=== PATIENT | female | born 1950 | race Caucasian/White ===

== ENCOUNTER → 2017-02-17 | Outpatient (REF) | payer MEDICARE ==
[~2017-02-17] MED LIST: ALTA1CAP2 PO; ASPI650T2 OR; ASPI81TA83 OR; CALCIUM PO; FISH; FISHCAP PO; LOPR50TA OR; MULTIVIT PO; PAIN325T OR; SOTA80TA6 PO; VITAMIN D PO; XARE20TA PO
[2017-02-17 13:13] LABS: MEAN CORPUSCULAR HEMOGLOBIN 31.8 pg (27.0-33.0); MEAN CORPUSCULAR HGB CONC 33.3 g/dl (32.0-36.5); MEAN CORPUSCULAR VOLUME 95.4 fl (80.0-96.0); RED CELL DISTRIBUTION WIDTH 13.4 % (11.5-14.5); WHITE BLOOD COUNT 4.8 K/mm3 (4.0-10.0)
[2017-02-17 13:44] LABS: ALBUMIN 3.7 GM/DL (3.2-5.2); ALBUMIN/GLOBULIN RATIO 1.23 (1.00-1.93); ALKALINE PHOSPHATASE 99 U/L (45-117); ALT/SGPT 34 U/L (12-78); ANION GAP 8 MEQ/L (8-16); AST/SGOT 20 U/L (15-37); BILIRUBIN,TOTAL 0.7 MG/DL (0.2-1.0); BLOOD UREA NITROGEN 21 MG/DL (7-18); CALCIUM LEVEL 9.2 MG/DL (8.8-10.2); CARBON DIOXIDE LEVEL 29 MEQ/L (21-32); CHLORIDE LEVEL 104 MEQ/L (98-107); CREATININE FOR GFR 0.81 MG/DL (0.55-1.02); GLOMERULAR FILTRATION RATE > 60.0 (>45); GLUCOSE, FASTING 98 MG/DL (80-110); POTASSIUM SERUM 4.5 MEQ/L (3.5-5.1); SODIUM LEVEL 141 MEQ/L (136-145); TOTAL PROTEIN 6.7 GM/DL (6.4-8.2)
== END ==
LOC: M SFHCPLAZ 10:21
PROVIDERS: ATTEND Internal Medicine
DX: Z00.00 Encounter for general adult medical examination without abnormal findings (principal); Z79.01 Long term (current) use of anticoagulants; I10 Essential (primary) hypertension

== ENCOUNTER → 2018-02-17 | Outpatient (REF) | payer MEDICARE ==
[2018-02-17 13:25] LABS: HEMATOCRIT 38.5 % (36.0-47.0); HEMOGLOBIN 12.9 g/dl (12.0-15.5); MEAN CORPUSCULAR HEMOGLOBIN 31.3 pg (27.0-33.0); MEAN CORPUSCULAR HGB CONC 33.5 g/dl (32.0-36.5); MEAN CORPUSCULAR VOLUME 93.4 fl (80.0-96.0); PLATELET COUNT, AUTOMATED 141 10^3/uL (150-450); RED BLOOD COUNT 4.12 10^6/uL (4.00-5.40); RED CELL DISTRIBUTION WIDTH 13.4 % (11.5-14.5); WHITE BLOOD COUNT 4.8 10^3/uL (4.0-10.0)
[2018-02-17 13:57] LABS: ALBUMIN 3.8 GM/DL (3.2-5.2); ALBUMIN/GLOBULIN RATIO 1.31 (1.00-1.93); ALKALINE PHOSPHATASE 93 U/L (45-117); ALT/SGPT 39 U/L (12-78); ANION GAP 9 MEQ/L (8-16); AST/SGOT 27 U/L (7-37); BLOOD UREA NITROGEN 19 MG/DL (7-18); CARBON DIOXIDE LEVEL 29 MEQ/L (21-32); CHLORIDE LEVEL 104 MEQ/L (98-107); CHOLESTEROL LEVEL 162 MG/DL (<200); CHOLESTEROL RISK RATIO 2.314 (<5); CREATININE FOR GFR 0.84 MG/DL (0.55-1.30); GLOMERULAR FILTRATION RATE > 60.0 (>45); GLUCOSE, FASTING 95 MG/DL (70-100); HDL CHOLESTEROL 70 MG/DL (>40); LDL CHOLESTEROL 78.2 MG/DL (<100); NON-HDL-C 92 MG/DL; POTASSIUM SERUM 4.7 MEQ/L (3.5-5.1); SODIUM LEVEL 142 MEQ/L (136-145); TOTAL PROTEIN 6.7 GM/DL (6.4-8.2); TRIGLYCERIDES LEVEL 69 MG/DL (<150)
== END ==
LOC: M SFHCADAM 08:48
DX: Z79.01 Long term (current) use of anticoagulants (principal); I10 Essential (primary) hypertension
CPT/HCPCS: 83735

== ENCOUNTER → 2019-02-20 | Outpatient (REF) | payer MEDICARE ==
[2019-02-20 13:48] LABS: HEMATOCRIT 38.9 % (36.0-47.0); HEMOGLOBIN 13.1 g/dl (12.0-15.5); MEAN CORPUSCULAR HEMOGLOBIN 31.3 pg (27.0-33.0); MEAN CORPUSCULAR HGB CONC 33.7 g/dl (32.0-36.5); MEAN CORPUSCULAR VOLUME 92.8 fl (80.0-96.0); PLATELET COUNT, AUTOMATED 150 10^3/uL (150-450); RED BLOOD COUNT 4.19 10^6/uL (4.00-5.40); WHITE BLOOD COUNT 5.2 10^3/uL (4.0-10.0)
[2019-02-20 14:28] LABS: ALBUMIN 4.1 GM/DL (3.2-5.2); ALT/SGPT 36 U/L (12-78); BILIRUBIN,TOTAL 0.8 MG/DL (0.2-1.0); BLOOD UREA NITROGEN 22 MG/DL (7-18); CALCIUM LEVEL 9.2 MG/DL (8.8-10.2); CARBON DIOXIDE LEVEL 31 MEQ/L (21-32); CHLORIDE LEVEL 105 MEQ/L (98-107); CHOLESTEROL LEVEL 155 MG/DL (<200); CHOLESTEROL RISK RATIO 2.152 (<5); CREATININE FOR GFR 0.88 MG/DL (0.55-1.30); GLOMERULAR FILTRATION RATE > 60.0 (>39); GLUCOSE, FASTING 96 MG/DL (70-100); HDL CHOLESTEROL 72 MG/DL (>40); LDL CHOLESTEROL 72 MG/DL (<100); MAGNESIUM LEVEL 2.2 MG/DL (1.8-2.4); NON-HDL-C 83 MG/DL; POTASSIUM SERUM 4.3 MEQ/L (3.5-5.1); SODIUM LEVEL 140 MEQ/L (136-145); TOTAL PROTEIN 6.9 GM/DL (6.4-8.2); TRIGLYCERIDES LEVEL 54 MG/DL (<150)
== END ==
LOC: M SFHCADAM 10:50
PROVIDERS: ATTEND Internal Medicine
DX: Z79.01 Long term (current) use of anticoagulants (principal); I10 Essential (primary) hypertension; I48.0 Paroxysmal atrial fibrillation

== ENCOUNTER → 2020-02-28 | Outpatient (REF) | payer MEDICARE ==
[2020-04-01 11:37] LABS: HEMATOCRIT 40.5 % (36.0-47.0); HEMOGLOBIN 13.5 g/dl (12.0-15.5); MEAN CORPUSCULAR HEMOGLOBIN 31.5 pg (27.0-33.0); MEAN CORPUSCULAR HGB CONC 33.3 g/dl (32.0-36.5); MEAN CORPUSCULAR VOLUME 94.4 fl (80.0-96.0); PLATELET COUNT, AUTOMATED 161 10^3/uL (150-450); RED BLOOD COUNT 4.29 10^6/uL (4.00-5.40); WHITE BLOOD COUNT 5.7 10^3/uL (4.0-10.0)
[2020-04-14 10:49] LABS: ALBUMIN 4.1 GM/DL (3.2-5.2); ALT/SGPT 39 U/L (12-78); BILIRUBIN,TOTAL 0.9 MG/DL (0.2-1.0); BLOOD UREA NITROGEN 17 MG/DL (7-18); CALCIUM LEVEL 9.2 MG/DL (8.8-10.2); CARBON DIOXIDE LEVEL 32 MEQ/L (21-32); CHLORIDE LEVEL 105 MEQ/L (98-107); CHOLESTEROL LEVEL 170 MG/DL (<200); CHOLESTEROL RISK RATIO 2.236 (<5); CREATININE FOR GFR 0.91 MG/DL (0.55-1.30); GLOMERULAR FILTRATION RATE > 60.0 (>39); GLUCOSE, FASTING 100 MG/DL (70-100); HDL CHOLESTEROL 76 MG/DL (>40); LDL CHOLESTEROL 83 MG/DL (<100); NON-HDL-C 94 MG/DL; POTASSIUM SERUM 4.6 MEQ/L (3.5-5.1); SODIUM LEVEL 139 MEQ/L (136-145); TOTAL PROTEIN 7.1 GM/DL (6.4-8.2); TRIGLYCERIDES LEVEL 55 MG/DL (<150)
== END ==
LOC: M SFHCADAM 11:04
PROVIDERS: ATTEND Internal Medicine
DX: Z00.00 Encounter for general adult medical examination without abnormal findings (principal); I10 Essential (primary) hypertension; Z79.01 Long term (current) use of anticoagulants; I48.0 Paroxysmal atrial fibrillation; H52.13 Myopia, bilateral

== ENCOUNTER → 2021-02-18 | Outpatient (REF) | payer MEDICARE ==
[~2021-02-18] MED LIST changes: +Vitamin D PO
[2021-02-18 13:55] LABS: BASO % 0.6 % (0.0-1.0); EOS # 0.1 10^3/uL (0.0-0.5); EOS % 2.7 % (0.0-3.0); HEMATOCRIT 39.2 % (36.0-47.0); HEMOGLOBIN 12.6 g/dl (12.0-15.5); LYMPH # 1.5 10^3/uL (1.5-5.0); LYMPH % 29.8 % (24.0-44.0); MEAN CORPUSCULAR HEMOGLOBIN 30.2 pg (27.0-33.0); MEAN CORPUSCULAR HGB CONC 32.1 g/dl (32.0-36.5); MONO # 0.6 10^3/uL (0.0-0.8); MONO % 11.3 % (2.0-8.0); NEUTROPHILS # 2.7 10^3/uL (1.5-8.5); NEUTROPHILS % 55.2 % (36.0-66.0); PLATELET COUNT, AUTOMATED 136 10^3/uL (150-450); RED BLOOD COUNT 4.17 10^6/uL (4.00-5.40); WHITE BLOOD COUNT 4.9 10^3/uL (4.0-10.0)
[2021-02-18 14:29] LABS: ALBUMIN 3.9 GM/DL (3.2-5.2); ALT/SGPT 35 U/L (12-78); BILIRUBIN,TOTAL 0.6 MG/DL (0.2-1.0); BLOOD UREA NITROGEN 20 MG/DL (7-18); CALCIUM LEVEL 9.5 MG/DL (8.8-10.2); CARBON DIOXIDE LEVEL 32 MEQ/L (21-32); CHLORIDE LEVEL 106 MEQ/L (98-107); CHOLESTEROL LEVEL 168 MG/DL (<200); CHOLESTEROL RISK RATIO 2.181 (<5); CREATININE FOR GFR 0.79 MG/DL (0.55-1.30); GLOMERULAR FILTRATION RATE > 60.0 (>39); GLUCOSE, FASTING 103 MG/DL (70-100); HDL CHOLESTEROL 77 MG/DL (>40); LDL CHOLESTEROL 81 MG/DL (<100); MAGNESIUM LEVEL 2.2 MG/DL (1.8-2.4); NON-HDL-C 91 MG/DL; POTASSIUM SERUM 4.7 MEQ/L (3.5-5.1); SODIUM LEVEL 144 MEQ/L (136-145); TOTAL PROTEIN 6.6 GM/DL (6.4-8.2); TRIGLYCERIDES LEVEL 52 MG/DL (<150)
== END ==
LOC: M SFHCADAM 09:03
PROVIDERS: ATTEND Internal Medicine
DX: Z79.01 Long term (current) use of anticoagulants (principal); I10 Essential (primary) hypertension

== ENCOUNTER → 2021-04-22 | Outpatient (CLI) | payer MEDICARE ==
[~2021-04-22] MED LIST changes: -Vitamin D PO
--- NOTE | 2021-04-22 12:40 | REPMRS ---
Patient History The patient states she had a clinical breast exam in April 2020. Patient is postmenopausal. Family history of breast cancer at age 37 in sister. Patient states no breast complaints today. Patient has signed MRS History Sheet. Digital Woman Screen Mammo: April 22, 2021 - Exam #: [id number] Bilateral CC and MLO view(s) were taken. Technologist: Dominique Driscoll, Technologist Prior study comparison: March 19, 2020, bilateral digital mammo screening bilat, performed at [facility]. March 13, 2019, bilateral digital mammo screening bilat, performed at [facility]. March 11, 2018, bilateral digital mammo screening bilat, performed at [facility]. FINDINGS: The breast tissue is heterogeneously dense. This may lower the sensitivity of mammography. The Volpara volumetric breast density category is: C. There is a moderate amount of heterogeneously dense fibroglandular tissue which is fairly symmetric. There is no interval development of dominant mass, architectural distortion, or grouped microcalcification typical of malignancy. There has been no change in the appearance of the mammogram from the prior studies. 3-D tomosynthesis shows no additional findings. Assessment: BI-RADS/ACR category 1 mammogram. Negative Mammogram. Recommendation Routine screening mammogram of both breasts in 1 year (for women over age 40). This patient's [facility] Lifetime Breast Cancer RIsk is estimated at 11.3 %. This mammogram was interpreted with the aid of an FDA-approved computer-aided dectection system. Electronically Signed By: Tirso Mccoy MD 04/22/21 [id number]
== END ==
LOC: M WHC 11:51
PROVIDERS: ATTEND Obstetrics & Gynecology
DX: Z12.31 Encounter for screening mammogram for malignant neoplasm of breast (principal)

== ENCOUNTER 2021-06-11 09:20 | Emergency (ER) | payer MEDICARE ==
[~2021-06-11] VITALS: Ht 165.1 cm; Wt 58.7 kg
--- OUTSIDE RECORDS SUMMARY | 2021-06-11 09:25 | CCD ---
Author Author [facility] Organization [facility] Address Unknown Phone Unavailable Care Team Providers Care Certified Paralegal Name Role Phone Suzanna SANTANA MD Unavailable Unavailable Suzanna SANTANA MD Unavailable Unavailable Suzanna SANTANA MD Unavailable Unavailable Suzanna SANTANA MD Unavailable Unavailable Suzanna SANTANA MD Unavailable Unavailable Suzanna SANTANA MD Unavailable Unavailable Suzanna SANTANA MD Unavailable Unavailable Suzanna SANTANA MD Unavailable Unavailable Suzanna SANTANA MD Unavailable Unavailable Suzanna SANTANA MD Unavailable Unavailable Suzanna SANTANA MD Unavailable Unavailable Suzanna SANTANA MD Unavailable Unavailable Suzanna SANTANA MD Unavailable Unavailable Suzanna SANTANA MD Unavailable Unavailable Suzanna SANTANA MD Unavailable Unavailable Suzanna SANTANA MD Unavailable Unavailable Suzanna SANTANA MD Unavailable Unavailable Suzanna SANTANA MD Unavailable Unavailable Suzanna SANTANA MD Unavailable Unavailable Suzanna SANTANA MD Unavailable Unavailable Suzanna SANTANA MD Unavailable Unavailable Suzanna SANTANA MD Unavailable Unavailable Suzanna SANTANA MD Unavailable Unavailable Suzanna SANTANA MD Unavailable Unavailable Suzanna SANTANA MD Unavailable Unavailable Suzanna SANTANA MD Unavailable Unavailable Suzanna SANTANA MD Unavailable Unavailable Suzanna SANTANA MD Unavailable Unavailable Suzanna SANTANA MD Unavailable Unavailable Suzanna SANTANA MD Unavailable Unavailable Suzanna SANTANA MD Unavailable Unavailable SANTANA, L TAMMY MD Unavailable Unavailable SANTANA, L TAMMY MD Unavailable Unavailable SANTANA, L TAMMY MD Unavailable Unavailable SANTANA, L TAMMY MD Unavailable Unavailable SANTANA, L TAMMY MD Unavailable Unavailable SANTANA, L TAMMY MD Unavailable Unavailable SANTANA, L TAMMY MD Unavailable Unavailable SANTANA, L TAMMY MD Unavailable Unavailable SANTANA, L TAMMY MD Unavailable Unavailable SANTANA, L TAMMY MD Unavailable Unavailable SANTANA, L TAMMY MD Unavailable Unavailable SANTANA, L TAMMY MD Unavailable Unavailable SANTANA, L TAMMY MD Unavailable Unavailable SANTANA, L TAMMY MD Unavailable Unavailable NADINE, A JAYDEN DO Unavailable Unavailable NADINE, A JAYDEN DO Unavailable Unavailable NADINE, A JAYDEN DO Unavailable Unavailable NADINE, A JAYDEN DO Unavailable Unavailable NADINE, A JAYDEN DO Unavailable Unavailable NADINE, A JAYDEN DO Unavailable Unavailable NADINE, A JAYDEN DO Unavailable Unavailable NADINE, A JAYDEN DO Unavailable Unavailable NADINE, A JAYDEN DO Unavailable Unavailable NADINE, A JAYDEN DO Unavailable Unavailable NADINE, A JAYDEN DO Unavailable Unavailable NADINE, A JAYDEN DO Unavailable Unavailable NADINE, A JAYDEN DO Unavailable Unavailable NADINE, A JAYDEN DO Unavailable Unavailable NADINE, A JAYDEN DO Unavailable Unavailable NADINE, A JAYDEN DO Unavailable Unavailable NADINE, A JAYDEN DO Unavailable Unavailable NADINE, A JAYDEN DO Unavailable Unavailable NADINE, A JAYDEN DO Unavailable Unavailable NADINE, A JAYDEN DO Unavailable Unavailable NADINE, A JAYDEN DO Unavailable Unavailable NADINE, A JAYDEN DO Unavailable Unavailable NADINE, A JAYDEN DO Unavailable Unavailable Re-disclosure Warning The records that you are about to access may contain information from federally-assisted alcohol or drug abuse programs. If such information is present, then the following federally mandated warning applies: This information has been disclosed to you from records protected by federal confidentiality rules (42 CFR part 2). The federal rules prohibit you from making any further disclosure of this information unless further disclosure is expressly permitted by the written consent of the person to whom it pertains or as otherwise permitted by 42 CFR part 2. A general authorization for the release of medical or other information is NOT sufficient for this purpose. The Federal rules restrict any use of the information to criminally investigate or prosecute any alcohol or drug abuse patient.The records that you are about to access may contain highly sensitive health information, the redisclosure of which is protected by Article 27-F of the [facility] Public Health law. If you continue you may have access to information: Regarding HIV / AIDS; Provided by facilities licensed or operated by the [facility] Office of Mental Health; or Provided by the [facility] Office for People With Developmental Disabilities. If such information is present, then the following [facility] mandated warning applies: This information has been disclosed to you from confidential records which are protected by state law. State law prohibits you from making any further disclosure of this information without the specific written consent of the person to whom it pertains, or as otherwise permitted by law. Any unauthorized further disclosure in violation of state law may result in a fine or correction sentence or both. A general authorization for the release of medical or other information is NOT sufficient authorization for further disc losure. Family History Family Member Name Family Member Gender Family Member Status Date o f Status Description Data Source(s) Unknown Unknown Problem MEDENT ([facility] [employer]) Unknown Female Problem MEDENT ([facility]) Unknown Female Problem MEDENT ([facility] Unknown Female Problem MEDENT ([facility]) Unknown Unknown Problem [facility], [facility]) Encounters Encounter Providers Location Date Indications Data Source(s ) Office Visit, Est Pt., Level 3 PC [address] [place] [address] 02/24/2021 12:00:00 AM EDT eCW1 ([facility]) Unknown [address] [facility] [id number] 01/27/2021 12:00:00 AM EDT eCW1 ([facility] hospital) Unknown [address] [facility] [address] 07/10/2020 12:00:00 AM EST eCW1 (Critical access hospital) Outpatient<td ID="encounterTypeDescripti onID0">1 Year Follow-Up</td><td>Jayden Kay DO</td><td>Christopher Morrow MD [facility]</td><td>05/03/2020</td><td>2:24PM</td><td>3:11PM</td><td><content ID="encounterDiagnosisID0-0">Corneal Dystrophy Endothelial Fuchs' Bilateral Eyes</content>, <content ID="encounterDiagnosisID0-1">Cataract Senile Cortical</content>, <content ID="encounterDiagnosisID0-2">Cataract Senile Nuclear</content>, <content ID="encounterDiagnosisID0-3">Drusen Left Eye</content>, <content ID="encounterDiagnosisID0-4">Dry Eye Syndrome</content></td> Attender: JAYDEN Ruby MD [facility] 05/03/2020 02:24:00 PM EDT - 05/03/2020 03:11:00 PM EDT Corneal Dystrophy Endothelial Fuchs' Bilateral EyesDry Eye SyndromeDrusen Left EyeCataract Senile NuclearCataract Senile Cortical ANABEL (Christopher Nova MD [facility]) Corneal Dystrophy Endothelial Fuchs' Vini ateral Eyes Dry Eye Syndrome Drusen Left Eye Cataract Senile Nuclear Cataract Senile Cortical Outpatient Attender: TAMMY SANTANA MD [facility] medical investigator 01/2020 09:45:00 AM EDT 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 COVID-19 dose #2 given elsewhere Unspecified 09/27/2020 06:5 5:00 AM EST completed eCW1 (Critical access hospital) COVID-19 VACCINE Moderna 09/27/2020 12:00:00 AM EST completed [facility] Vaccine Series Complete: YESThis Data wa s Submitted to [facility] Via [employer]. COVID-19 dose #1 given elsewhere Unspecified 08/30/2020 06:5 5:00 AM EST completed eCW1 (Critical access hospital) COVID-19 VACCINE Moderna 08/30/2020 12:00:00 AM EST completed [facility]IS Vaccine Series Complete: NOThis Data was Submitted to [facility] Via [employer]. IIV3. This is one of two codes replacing CVX 15, which is being retired. 04/25/2020 06:54:00 AM EDT completed eCW1 ([facility]) INFLUENZA VACCINE TVS 2019- (65 YR UP)/ADJUVANT MF59 C.1/PF 04/25/2020 12:00:00 AM EDT completed [facility] Medications Medication Brand Name Start Date Product Form Dose Route Admi nistrative Instructions Pharmacy Instructions Status Indications Reaction Description Data Source(s) 100 mcg/0.5 mL 05/23/2021 12:00:00 AM EDT suspension 0 INJECT DIRECTED PER STANDING ORDER INJECT DIRECTED PER STANDING ORDER SOLD: 05/23/2021 [facility] 240 mcg/0.7 mL 05/03/2021 12:00:00 AM EDT syringe 0 INJECT DIRECTED INJECT DIRECTED SOLD: 05/03/2021 [facility] 80 mg 04/18/2021 12:00:00 AM EDT tablet 180 TAKE ONE TABLET BY MOUTH TWICE A DAY TAKE ONE TABLET BY MOUTH TWICE A DAY SOLD: 04/19/2021 [facility] 2.5 mg 01/27/2021 12:00:00 AM EDT capsule 90 TAKE ONE CAPSULE BY MOUTH EVERY DAY TAKE ONE CAPSULE BY MOUTH EVERY DAY SOLD: 05/09/2021 [facility] 2.5 mg 01/27/2021 12:00:00 AM EDT capsule 90 TAKE ONE CAPSULE BY MOUTH EVERY DAY TAKE ONE CAPSULE BY MOUTH EVERY DAY SOLD: 01/28/2021 [facility] 20 mg 10/14/2020 12:00:00 AM EDT tablet 90 TAKE ONE TABLET BY MOUTH EVERY DAY TAKE ONE TABLET BY MOUTH EVERY DAY SOLD: 03/27/2021 [facility] 20 mg 10/14/2020 12:00:00 AM EDT tablet 90 TAKE ONE TABLET BY MOUTH EVERY DAY TAKE ONE TABLET BY MOUTH EVERY DAY SOLD: 10/16/2020 [facility] 80 mg 04/03/2020 12:00:00 AM EDT tablet 180 TAKE ONE TABLET BY MOUTH TWICE A DAY TAKE ONE TABLET BY MOUTH TWICE A DAY SOLD: 07/18/2020 [facility] 80 mg 04/03/2020 12:00:00 AM EDT tablet 180 TAKE ONE TABLET BY MOUTH TWICE A DAY TAKE ONE TABLET BY MOUTH TWICE A DAY SOLD: 10/16/2020 [facility] 80 mg 04/03/2020 12:00:00 AM EDT tablet 180 TAKE ONE TABLET BY MOUTH TWICE A DAY TAKE ONE TABLET BY MOUTH TWICE A DAY SOLD: 01/17/2021 [facility] 2.5 mg 02/14/2020 12:00:00 AM EDT capsule 90 TAKE ONE CAPSULE BY MOUTH ONCE DAILY TAKE ONE CAPSULE BY MOUTH ONCE DAILY SOLD: 08/14/2020 [facility] 2.5 mg 02/14/2020 12:00:00 AM EDT capsule 90 TAKE ONE CAPSULE BY MOUTH ONCE DAILY TAKE ONE CAPSULE BY MOUTH ONCE DAILY SOLD: 11/11/2020 [facility] 2.5 mg 02/14/2020 12:00:00 AM EDT capsule 90 TAKE ONE CAPSULE BY MOUTH ONCE DAILY TAKE ONE CAPSULE BY MOUTH ONCE DAILY SOLD: 05/19/2020 [facility] 20 mg 10/23/2019 12:00:00 AM EDT tablet 90 TAKE ONE TABLET BY MOUTH EVERY DAY TAKE ONE TABLET BY MOUTH EVERY DAY SOLD: 04/20/2020 [facility] 20 mg 10/23/2019 12:00:00 AM EDT tablet 90 TAKE ONE TABLET BY MOUTH EVERY DAY TAKE ONE TABLET BY MOUTH EVERY DAY SOLD: 07/20/2020 [facility] Insurance Providers Payer name Policy type / Coverage type Policy ID Covered libertarian ID Covered libertarian's relationship to reyes Policy Reyes Plan Information BCBS [place] [id number] [id number] [place] P[place] 302/307 [id number] SP [id number] BS [id number] Commercial [id number] Self [id number] [facility] MEDICARE BLUE PPO G [id number] Self [id number] [facility] Advantage Commercial [id number] Self V [id number] [facility] Advantage Commercial [id number] Self BS Medicare Blue Ppo/Hmo Commercial [id number] Self [id number] MEDICARE BLUE PPO 306 [id number] SP [id number] BS Medicare Ppo Commercial [id number] Self [place] PPO 302/307 [id number] SP [id number] SELF PAY UNAVAILABLE UNAVAILA BLE [employer] 304/804 [id number] [place] PPO 302/307 [id number] SP [id number] BS Medicare Blue Ppo/Hmo Commercial [id number] Self MEDICARE O [id number] P [id number] A EXCELLUS BCBS S [id number] P [id number] BCBS OF [place] 306/8 P [id number] O [id number] MEDICARE BLUE PPO [id number] SP [id number] [place] Other 0 [id number] Se lf 0 EXCELLUS BCBS B [id number] S [id number] ANSI-Medicare Part B [id number] Medicare Blue [facility] Health Maintenance Organization (HMO) [id number] Self V [id number] ANSI-Medicare Part B [id number] Problems, Conditions, and Diagnoses Code Display Name Description Problem Type Effective Dates Data Source(s) [id number] Fuchs' corneal dystrophy (disorder) [place] eal Dystrophy Endothelial Fuchs' Bilateral Eyes Problem 05/03/2020 12:00:00 AM TOMY LITTLE (Eliza Nova MD [facility]) Surgeries/Procedures Procedure Description Date Indications Data Source(s) Surgical / procedural history 1985, Right W rist 2018 Surgical / procedural history 1985, Right Wrist 2018 05/03/2020 12:00:00 AM TOMY LITTLE (Christopher Nova MD [facility]) Intermediate Eye Exam Established Patient Intermediate Eye Exam Established Patient 05/03/2020 12:00:00 AM EDT ANABEL (Michael Nova MD [facility]) Results ID Date Data Source [id number] 04/24/2020 12:00:00 PM EDT NATALIE (David Woman ASSISTANT INFANT TEACHER) Name Value Range Interpretation Code Description Data Flori rce(s) Supporting Document(s) TP Reflex HPV ASCUS Laboratory test result MEDENT (David Bruce ASSISTANT INFANT TEACHER) TP Reflex HPV ASCUS Laboratory test result MEDENT (David Bruce ASSISTANT INFANT TEACHER) SPECIMEN PART------ A. Cervical, Endocervical, ThinPrep Pap (Blister Packaging Machine Operator) CYTOLOGY HX-------- Other Information:Previous Normal Pap: 04/20/18 Post-menopausal Routine Exam FINAL DIAGNOSIS---- INTERPRETATION: Negative for Intraepithelial Lesion or Malignancy. SPECIMEN ADEQUACY:Satisfactory for evaluation. Endocervical/transformation zone component present. Procedure Social History Code Duration Value Status Description Data Source(s ) Smoking 03/23/2021 09:54:16 PM EDT Never smoked tobacco (findi ng) completed Never smoked tobacco (finding) ANABEL (Christopher Nova MD [facility]) Smoking 02/24/2021 12:00:00 AM EDT Never Smoker completed Never S moker eCW1 ([facility]) Smoking 07/10/2020 12:00:00 AM EST Never Smoker completed Never S moker eCW1 ([facility]) Smoking 07/10/2020 12:00:00 AM EST Never Smoker completed Never S moker eCW1 ([facility]) Smoking 04/24/2020 12:00:00 AM EDT Patient has never smoked co mpleted Patient has never smoked MEDENT (David Bruce ASSISTANT INFANT TEACHER) Vital Signs ID Date Data Source UNK Name Value Range Interpretation Code Description Data Source(s) Body weight 128.0 [lb_av] 128.0 [lb_av] eCW1 ([facility]) Body height 66 [in_i] 66 [in_i] eCW1 ([facility]) Body mass index (BMI) [Ratio] 20.66 kg/m2 20.66 kg/m2 eCW1 ([facility]) Heart rate 74 /min 74 /min eCW1 ([facility]) Respiratory rate 18 /min 18 /min eCW1 ([facility]) Body temperature 98.1 [degF] 98.1 [degF] eCW1 ( [facility]) Systolic blood pressure 122 mm[Hg] 122 mm[Hg] e CW1 ([facility]) Diastolic blood pressure 70 mm[Hg] 70 mm[Hg] eCW1 ([facility]) Body mass index (BMI) [Ratio] 22.1 kg/m2 22.1 k g/m2 MEDENT ([facility] INF[employer] TEACH[employer]) Body surface area Derived from formula 1.64 m2 1.64 m2 MEDENT ([facility] [employer]IST[employer] INFANT TEACHER) Systolic blood pressure 134 mm[Hg] 134 mm[Hg] M EDENT ([facility] INFANT TEACHER) Diastolic blood pressure 78 mm[Hg] 78 mm[Hg] MEDENT ([facility]IST[employer] INFANT TEACHER) Body height 64.5 [in_i] 64.5 [in_i] MEDENT (Trey oksana Woman ASSISTANT INFANT TEACHER) 5'4.50" Body weight 131.00 [lb_av] 131.00 [lb_av] MEDEN T (Hernandez Woman ASSISTANT INFANT TEACHER)
--- OUTSIDE RECORDS SUMMARY | 2021-06-11 09:25 | CCD ---
Author Author Christopher Morrow MD [facility] Organization Christopher Morrow MD [facility] Address [address] [place] [address] Phone Care Team Providers Care Insurance Processor Name Role Phone Eliza GUTIERREZ Nadir Unavailable [phone] Reason for Referral No Reason for Referral Recorded Problems Includes: Active, inactive, and resolved Problems All Visits Onset Date - Time Resolved Date - Time Provider Co ndition Status Corneal Dystrophy Endothelial Fuchs' Bilateral Eyes 05/03/2020 - 12:00AM Nadir Kay DO Active Cataract Senile Cortical 04/27/2019 - 12:00AM Nadir Kay DO Active Drusen Left Eye 04/27/2019 - 12:00AM Nadir Kay DO Active Corneal Dystrophy Endothelial Fuchs' 04/27/2019 - 12:00AM Nadir Kay DO Inactive Cataract Senile Nuclear 04/27/2019 - 12:00AM Nadir lundberg DO Active Dry Eye Syndrome 04/27/2019 - 12:00AM Nadir gleason DO Active Plan of Treatment Future Appointments Date Time Location Provider 1 Year Follow-Up 05/07/2021 1:50PM Christopher Morrow MD [facility] Nadir Kay DO Findings Encounter Date Ordered intervention and counseling on cessation of to bacco use, 3-10 minutes NEW PATIENT WITH REFERRAL with Nadir Kay DO 04/27/2019 Assessments Includes: Assessments for all patient encounters Findings Encounter Date Cortical senile cataract 1 Year Follow-Up with Nadir nagy DO 05/03/2020 Drusen of the left eye 1 Year Follow-Up with Nadir macedo DO 05/03/2020 Dry eye syndrome 1 Year Follow-Up with Nadir Kay DO 05/03/2020 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 1 Year Follow-Up with Nadir Kay DO 05/03/2020 Nuclear senile cataract 1 Year Follow-Up with Nadir pederson DO 05/03/2020 Cortical senile cataract NEW PATIENT WITH REFERRAL with Hussain Kay DO 04/27/2019 Drusen of the left eye NEW PATIENT WITH REFERRAL with Simi Kay DO 04/27/2019 Dry eye syndrome NEW PATIENT WITH REFERRAL with Nadir lundberg DO 04/27/2019 Fuchs' endothelial corneal dystrophy NEW PATIENT WITH REFERRAL with Nadir Kay DO 04/27/2019 Nuclear senile cataract NEW PATIENT WITH REFERRAL with Oscar tyson Eliza DO 04/27/2019 Instructions Instructions not supported for this document typeNo Instructions Recorded Medical Equipment - Implanted Devices Includes: Current and historical DevicesNo Medical Equipment Recorded Medications Includes: Current and historical Medications Current Medications (continue as prescribed) Ramipril 2.5 MG Oral Capsule 04/27/2019 Provider: Diagnosis: Xarelto 20 MG Oral Tablet 04/27/2019 Provider: Diagnosis: Sotalol HCl 80 MG Oral Tablet 04/27/2019 Provider: Diagnosis: 2 a day Centrum Silver Oral Tablet 04/27/2019 Provider: Diagnosis: Calcium 600 MG Oral Tablet 04/27/2019 Provider: Diagnosis: Medications Administered Includes: Administered Medications in patient's chartNo Administered Medications Recorded Vital Signs Includes: Vital Signs from 03/23/2020 through 03/23/2021No Vital Signs Recorded For Specified Dates Results Includes: Results from 03/23/2020 through 03/23/2021No Results Recorded For Specified Dates History of Present Illness History of Present Illness not supported for this document typeNo History of Present Illness Recorded Social History Description Last Updated No tobacco use 05/03/2020 Not using alcohol 05/03/2020 Not using drugs 05/03/2020 Smoking status : Never smoker 05/03/2020 Procedures and Surgical History Includes: Procedures from 03/23/2020 through 03/23/2021 Procedures Code Diagnosis Performing Provider Service Location Service Date Intermediate Eye Exam Established Patient [id number] Drusen (degenerative) of macula, left eye, Endothelial corneal dystrophy, bilateral, Age-related nuclear cataract, bilateral, Dry eye syndrome of bilateral lacrimal glands Nadir Ruby MD [facility] 05/03/2020 Surgical History Last Updated Surgical / procedural history 1985, Right W rist 2018 05/03/2020 Medical History Includes: Medical History in patient's chart Description Last Updated No recent change in medical history 05/03/2020 Currently wearing eyeglasses 05/03/2020 Reported medical history A-Fib 201105/03/2020 Family History Includes: Family History in patient's chart Description Last Updated Maternal history of cataract 05/03/2020 Maternal history of diabetes mellitus 05/03/2020 Maternal history of hypertension 05/03/2020 Paternal history of arthritis 05/03/2020 Paternal history of cataract 05/03/2020 Paternal history of hypertension 05/03/2020 Sororal history of arthritis 05/03/2020 Sororal history of diabetes mellitus 05/03/2020 Sororal history of family history of cancer 05/03/2020 Review of Systems Review of Systems not supported for this document typeNo Review of Systems Recorded Mental Status Mental Status not supported for this document type Description Oriented to time, place, and person Functional Status Functional Status not supported for this document typeNo Functional Status Recorded Physical Exam Physical Exam not supported for this document typeNo Physical Exam Recorded Immunizations Includes: Immunizations in patient's chartNo Immunizations Recorded Allergies Includes: Active, inactive, and resolved AllergiesNo Known Allergies Encounters Includes: Encounters from 03/23/2020 through 03/23/2021 Encounter Provider Location Date Check-In Time Check-Out Time D iagnosis 1 Year Follow-Up Nadir Ruby MD [facility] 04/18 2:24PM 3:11PM Corneal Dystrophy Endothelia l Fuchs' Bilateral Eyes, Cataract Senile Cortical, Cataract Senile Nuclear, Drusen Left Eye, Dry Eye Syndrome Insurance Includes: Active Insurance Policies Plan Name Member ID Group # Subscriber Relationship Effective Da remi 1 - MEDICARE EMILY [id number] Imelda Castellanos Self Advance Directives Includes: Current Advance DirectivesNo Advance Directives Recorded Health Concerns Includes: Active Health ConcernsNo Active Health Concerns Recorded Goals Includes: Active GoalsNo Active Goals Recorded Interventions Includes: Interventions for active GoalsNo Interventions Recorded Evaluations & Outcomes Includes: Evaluations & Outcomes for active GoalsNo Outcomes Recorded
[2021-06-11] MEDS ORDERED: Vitamin D PO (09:30)
--- OUTSIDE RECORDS SUMMARY | 2021-06-11 11:13 | CCD ---
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 Role Phone Suzanna SANTANA MD Unavailable Unavailable Suzanna SANTANA MD Unavailable Unavailable Suzanna SANTANA MD Unavailable Unavailable Suzanna SANTANA MD Unavailable Unavailable Suzanna SANTANA MD Unavailable Unavailable Suzanna SANTANA MD Unavailable Unavailable Suzanna SANTANA MD Unavailable Unavailable SANTANASuzanna MD Unavailable Unavailable Suzanna SANTANA MD Unavailable Unavailable SANTANASuzanna MD Unavailable Unavailable Suzanna SANTANA MD Unavailable Unavailable Suzanna SANTANA MD Unavailable Unavailable SANTANASuzanna MD Unavailable Unavailable Suzanna SANTANA MD Unavailable Unavailable SANTANASuzanna MD Unavailable Unavailable Suzanna SANTANA MD Unavailable Unavailable SANTANASuzanna MD Unavailable Unavailable Suzanna SANTANA MD Unavailable Unavailable Suzanna SANTANA MD Unavailable Unavailable SANTANASuzanna MD Unavailable Unavailable Suzanna SANTANA MD Unavailable Unavailable SANTANASuzanna MD Unavailable Unavailable SANTANASuzanna MD Unavailable Unavailable Suzanna SANTANA MD Unavailable Unavailable Suzanna SANTANA MD Unavailable Unavailable Suzanna SANTANA MD Unavailable Unavailable Suzanna SANTANA MD Unavailable Unavailable MAX, Suzanna MUNOZ MD Unavailable Unavailable MAX, L TAMMY ORTEZ Unavailable Unavailable Suzanna SANTANA MD Unavailable Unavailable [...] is protected by Article 27-F of the [place] State Public Health law. If you continue you may have access to information: Regarding HIV / AIDS; Provided by facilities licensed or operated by the [facility] Office of Mental Health; or Provided by the [facility] Office for People With Developmental Disabilities. If such information is present, then the following [facility] mandated warning applies: This information has [...] law may result in a fine or nursing home sentence or both. A general authorization for the release of medical or other information is NOT sufficient authorization for further disc losure. Family History Family Member Name Family Member Gender Family Member Status Date o f Status Description Data Source(s) Unknown Unknown Problem MEDENT ([facility]) Unknown Female Problem MEDENT ([facility]) Unknown Female Problem [facility] ([facility] Unknown Female Problem MEDENT ([facility]) Unknown Unknown Problem [facility]) Encounters Encounter Providers Location Date Indications Data Source(s ) Office Visit, Est Pt., Level 3 PC [address] [place] [address] 02/24/2021 12:00:00 AM EDT eCW1 ([facility]) Unknown [address] [facility] [id number] 01/27/2021 12:00:00 AM EDT eCW1 ([facility]) Unknown [address] [facility] [id number] 07/10/2020 12:00:00 AM EST eCW1 ([facility]) <td ID="encounterTypeDescriptionID0">1 Y ear Follow-Up</td><td>Jayden Kay DO</td><td>Christopher Morrow MD [facility]</td><td>05/03/2020</td><td>2:24PM</td><td>3:11PM</td><td><content ID="encounterDiagnosisID0-0">Corneal Dystrophy Endothelial Fuchs' Bilateral Eyes</content>, <content ID="encounterDiagnosisID0-1">Cataract Senile Cortical</content>, <content ID="encounterDiagnosisID0-2">Cataract Senile Nuclear</content>, <content ID="encounterDiagnosisID0-3">Drusen Left Eye</content>, <content ID="encounterDiagnosisID0-4">Dry Eye Syndrome</content></td>Outpatient Attender: JAYDEN Saunders MD [facility] 05/03/2020 02:24:00 PM EDT - 05/03/2020 03:11:00 PM ED T Corneal Dystrophy Endothelial Fuchs' Bilateral EyesDry Eye SyndromeDrusen Left EyeCataract Senile NuclearCataract Senile Cortical ANABEL (Christopher Nova MD 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 COVID-19 dose #2 given elsewhere Unspecified 09/27/2020 06:5 5:00 AM EST completed eCW1 ([facility]) COVID-19 VACCINE Moderna 09/27/2020 12:00:00 AM EST completed [facility] Vaccine Series Complete: YESThis Data wa s Submitted to [facility] Via [employer]. COVID-19 dose #1 given elsewhere Unspecified 08/30/2020 06:5 5:00 AM EST completed eCW1 ([facility]) COVID-19 VACCINE Moderna 08/30/2020 12:00:00 AM EST completed [facility] Vaccine Series Complete: NOThis Data was Submitted to [facility] Via [employer]. IIV3. This is one of two codes replacing CVX 15, which is being retired. 04/25/2020 06:54:00 AM EDT completed eCW1 ([facility]) INFLUENZA VACCINE TVS 2019- (65 YR UP)/ADJUVANT [...] Policy Reyes Plan Information BCBS [place] 304/804 [id number] [id number] [place]BS [place] PPO 302/307 [id number] SP [id number] BS [employer] Commercial [id number] Self [id number] [facility] MEDICARE BLUE PPO G [id number] Self [id number] [facility] Advantage Commercial [id number] Self V [id number] [facility] Advantage Commercial [id number] Self BS Medicare Blue Ppo/Hmo Commercial [id number] Self [id number] MEDICARE BLUE PPO 306 [id number] SP [id number] BS Medicare Ppo Commercial [id number] Self BCBS [place] PPO 302/307 [id number] SP [id number] SELF PAY UNAVAILABLE UNAVAILA BLE BCBS [place] 304/804 [id number] HU [id number] [place] PPO 302/307 [id number] SP [id number] BS Medicare Blue Ppo/Hmo Commercial [id number] Self MEDICARE O [id number] A EXCELLUS BCBS S [id number] P [id number] BCBS OF [place] 306/8 P [id number] O [id number] MEDICARE BLUE PPO 306 [id number] SP [id number] BCBS of [place] Other 0 [id number] Se lf 0 EXCELLUS BCBS B [id number] S [id number] ANSI-Medicare Part B [id number] Medicare Blue [facility] Maintenance Organization (HMO) [id number] Self V [id number] ANSI-Medicare Part B [id number] Problems, Conditions, and Diagnoses Code Display Name Description Problem Type Effective Dates Data Source(s) 599912705 Fuchs' corneal dystrophy (disorder) [place] eal Dystrophy Endothelial Fuchs' Bilateral Eyes Problem 05/03/2020 12:00:00 AM TOMY LITTLE (Eliza Nova MD [facility]) Surgeries/Procedures Procedure Description Date Indications Data Source(s) Surgical / procedural history 1985, Right W rist 2018 Surgical / procedural history 1985, Right Wrist 2018 05/03/2020 12:00:00 AM TOMY LITTLE (Christopher Nova MD [facility]) Intermediate Eye Exam Established Patient Intermediate Eye Exam Established Patient 05/03/2020 12:00:00 AM EDT ANABEL (Michael Nova MD [facility]) Results ID Date Data Source [id number] 04/24/2020 12:00:00 PM EDT MEDSCOTTY (David Woman [facility]) Name Value Range Interpretation Code Description Data Flori rce(s) Supporting Document(s) TP Reflex HPV ASCUS Laboratory test result MEDENT (David Bruce [facility]) TP Reflex HPV ASCUS Laboratory test result MEDENT (David Bruce [facility]) SPECIMEN PART------ A. Cervical, Endocervical, ThinPrep Pap (Rn Documentation) CYTOLOGY HX-------- Other Information:Previous Normal Pap: 04/20/18 Post-menopausal Routine Exam FINAL DIAGNOSIS---- INTERPRETATION: Negative for Intraepithelial Lesion or Malignancy. SPECIMEN ADEQUACY:Satisfactory for evaluation. Endocervical/transformation zone component present. Procedure Social History Code Duration Value Status Description Data Source(s ) Smoking 03/23/2021 09:54:16 PM EDT Never smoked tobacco (findi ng) completed Never smoked tobacco (finding) ANABEL (Christopher Nova MD [facility]) Smoking 02/24/2021 12:00:00 AM EDT Never Smoker completed Never S moker eCW1 ([facility]) Smoking 07/10/2020 12:00:00 AM EST Never Smoker completed Never S moker eCW1 ([facility]) Smoking 07/10/2020 12:00:00 AM EST Never Smoker completed Never S moker eCW1 ([facility]) Smoking 04/24/2020 12:00:00 AM EDT Patient has never smoked co mpleted Patient has never smoked MEDENT ([facility]) Vital Signs ID Date Data Source UNK Name Value Range Interpretation Code Description Data Source(s) Body weight 128.0 [lb_av] 128.0 [lb_av] eCW1 ([facility]) Body height 66 [in_i] 66 [in_i] eCW1 ([facility]) Body mass index (BMI) [Ratio] 20.66 kg/m2 20.66 kg/m2 eCW1 ([facility]) Heart rate 74 /min 74 /min eCW1 ([facility]) Respiratory rate 18 /min 18 /min eCW1 ([facility]) Body temperature 98.1 [degF] 98.1 [degF] eCW1 ( [facility]) Systolic blood pressure 122 mm[Hg] 122 mm[Hg] e CW1 ([facility]) Diastolic blood pressure 70 mm[Hg] 70 mm[Hg] eCW1 ([facility]) Body mass index (BMI) [Ratio] 22.1 kg/m2 22.1 k g/m2 MEDENT ([facility]) Body surface area Derived from formula 1.64 m2 1.64 m2 MEDENT ([facility]) Diastolic blood pressure 78 mm[Hg] 78 mm[Hg] MEDENT ([facility]) Body height 64.5 [in_i] 64.5 [in_i] MEDENT (Trey gandhi Woman [facility]) 5'4.50" Body weight 131.00 [lb_av] 131.00 [lb_av] MEDEN T ([facility]) Systolic blood pressure 134 mm[Hg] 134 mm[Hg] M EDENT ([facility])
[2021-06-11 11:17] LABS: HEMATOCRIT 38.1 % (36.0-47.0); HEMOGLOBIN 12.5 g/dl (12.0-15.5); MEAN CORPUSCULAR HEMOGLOBIN 30.9 pg (27.0-33.0); MEAN CORPUSCULAR HGB CONC 32.8 g/dl (32.0-36.5); MEAN CORPUSCULAR VOLUME 94.1 fl (80.0-96.0); PLATELET COUNT, AUTOMATED 118 10^3/uL (150-450); RED BLOOD COUNT 4.05 10^6/uL (4.00-5.40); WHITE BLOOD COUNT 4.6 10^3/uL (4.0-10.0)
[2021-06-11 11:36] LABS: BLOOD UREA NITROGEN 20 MG/DL (7-18); CALCIUM LEVEL 9.2 MG/DL (8.8-10.2); CARBON DIOXIDE LEVEL 33 MEQ/L (21-32); CHLORIDE LEVEL 106 MEQ/L (98-107); CREATININE FOR GFR 0.82 MG/DL (0.55-1.30); GLOMERULAR FILTRATION RATE > 60.0 (>39); GLUCOSE, FASTING 107 MG/DL (70-100); POTASSIUM SERUM 4.5 MEQ/L (3.5-5.1); SODIUM LEVEL 141 MEQ/L (136-145)
[2021-06-11 11:40] LABS: CK-MB VALUE MASS 1.5 NG/ML (<3.6); MB/CK RELATIVE INDEX 2.88 (< OR =4)
[2021-06-11 13:24] VITALS: BP 172/82
--- NOTE | 2021-06-11 17:01 | ECGEPIP ---
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
== END 2021-06-11 13:26 | disposition home or self-care (01) ==
LOC: M ED 09:20
DX: R42 Dizziness and giddiness (principal); I48.91 Unspecified atrial fibrillation; I10 Essential (primary) hypertension; Z79.01 Long term (current) use of anticoagulants; Z79.899 Other long term (current) drug therapy

== ENCOUNTER → 2022-03-03 | Outpatient (REF) | payer MEDICARE ==
[~2022-03-03] MED LIST changes: +Vitamin D PO
[2022-03-03 13:14] LABS: BASO % 0.5 % (0.0-1.0); EOS # 0.1 10^3/uL (0.0-0.5); EOS % 2.5 % (0.0-3.0); HEMOGLOBIN 12.5 g/dl (12.0-15.5); LYMPH # 1.3 10^3/uL (1.5-5.0); LYMPH % 31.7 % (24.0-44.0); MEAN CORPUSCULAR HEMOGLOBIN 30.7 pg (27.0-33.0); MEAN CORPUSCULAR HGB CONC 32.1 g/dl (32.0-36.5); MEAN CORPUSCULAR VOLUME 95.8 fl (80.0-96.0); MONO # 0.5 10^3/uL (0.0-0.8); MONO % 11.8 % (2.0-8.0); NEUTROPHILS # 2.2 10^3/uL (1.5-8.5); NEUTROPHILS % 53.3 % (36.0-66.0); PLATELET COUNT, AUTOMATED 136 10^3/uL (150-450); RED BLOOD COUNT 4.07 10^6/uL (4.00-5.40); WHITE BLOOD COUNT 4.1 10^3/uL (4.0-10.0)
[2022-03-03 14:07] LABS: ALBUMIN 3.8 GM/DL (3.2-5.2); ALT/SGPT 38 U/L (12-78); BILIRUBIN,TOTAL 0.8 MG/DL (0.2-1.0); BLOOD UREA NITROGEN 20 MG/DL (7-18); CALCIUM LEVEL 9.5 MG/DL (8.8-10.2); CARBON DIOXIDE LEVEL 29 MEQ/L (21-32); CHLORIDE LEVEL 105 MEQ/L (98-107); CHOLESTEROL LEVEL 154 MG/DL (<200); CHOLESTEROL RISK RATIO 1.974 (<5); CREATININE FOR GFR 0.83 MG/DL (0.55-1.30); GLOMERULAR FILTRATION RATE > 60.0 (>39); GLUCOSE, FASTING 103 MG/DL (70-100); HDL CHOLESTEROL 78 MG/DL (>40); LDL CHOLESTEROL 66 MG/DL (<100); NON-HDL-C 76 MG/DL; POTASSIUM SERUM 4.5 MEQ/L (3.5-5.1); SODIUM LEVEL 137 MEQ/L (136-145); TOTAL PROTEIN 6.2 GM/DL (6.4-8.2); TRIGLYCERIDES LEVEL 50 MG/DL (<150)
== END ==
LOC: M SFHCADAM 08:28
PROVIDERS: ATTEND Internal Medicine
DX: I48.0 Paroxysmal atrial fibrillation (principal); I10 Essential (primary) hypertension; Z79.01 Long term (current) use of anticoagulants

== ENCOUNTER → 2022-03-24 | Outpatient (REF) | payer MEDICARE ==
[2022-03-24 14:09] LABS: ALBUMIN 4.1 GM/DL (3.2-5.2); CALCIUM LEVEL 9.8 MG/DL (8.8-10.2); CREATININE FOR GFR 1.13 MG/DL (0.55-1.30); GLOMERULAR FILTRATION RATE 50.2 (>39); MAGNESIUM LEVEL 2.2 MG/DL (1.8-2.4); PHOSPHORUS LEVEL 3.9 MG/DL (2.5-4.9); POTASSIUM SERUM 4.3 MEQ/L (3.5-5.1)
== END ==
LOC: M SFHCADAM 11:09
PROVIDERS: ATTEND Family Medicine
DX: I10 Essential (primary) hypertension (principal)

== ENCOUNTER → 2022-04-23 | Outpatient (CLI) | payer MEDICARE | LOC: M WHC 09:32 | PROVIDERS: ATTEND Family Medicine | DX: Z12.31 Encounter for screening mammogram for malignant neoplasm of breast (principal); M85.89 Other specified disorders of bone density and structure, multiple sites ==

== ENCOUNTER → 2022-05-12 | Outpatient (REF) | payer MEDICARE ==
[2022-05-12 13:13] LABS: HEMATOCRIT 38.6 % (36.0-47.0)
[2022-05-12 14:22] LABS: ALBUMIN 3.8 GM/DL (3.2-5.2); BLOOD UREA NITROGEN 23 MG/DL (7-18); CALCIUM LEVEL 9.3 MG/DL (8.8-10.2); CARBON DIOXIDE LEVEL 29 MEQ/L (21-32); CHLORIDE LEVEL 105 MEQ/L (98-107); CREATININE FOR GFR 0.99 MG/DL (0.55-1.30); GLOMERULAR FILTRATION RATE 58.5 (>39); GLUCOSE, FASTING 108 MG/DL (70-100); NT-PRO BNP 1329 PG/ML (<125); PHOSPHORUS LEVEL 4.1 MG/DL (2.5-4.9); POTASSIUM SERUM 5.2 MEQ/L (3.5-5.1); SODIUM LEVEL 138 MEQ/L (136-145)
[2022-05-12 18:13] LABS: PTH INTACT 68.1 PG/ML (18.5-88.0); TOTAL 25(OH) VITAMIN D 50.2 NG/ML (30.0-100.0); VITAMIN B12 LEVEL 497 PG/ML (247-911)
[2022-05-13 17:07] LABS: FREE KAPPA LIGHT CHAINS SERUM 17.2 mg/L (3.3-19.4); KAPPA/LAMBDA RATIO SERUM 1.43 (0.26-1.65)
== END ==
LOC: M SFHCPLAZ 09:02
PROVIDERS: ATTEND Family Medicine
DX: D75.89 Other specified diseases of blood and blood-forming organs (principal); E55.9 Vitamin D deficiency, unspecified; I10 Essential (primary) hypertension; Z79.899 Other long term (current) drug therapy

== ENCOUNTER → 2022-09-25 | Outpatient (REF) | payer MEDICARE | LOC: M PLALAB 12:47 | PROVIDERS: ATTEND Nurse Practitioner Family | DX: Z12.4 Encounter for screening for malignant neoplasm of cervix (principal); N95.2 Postmenopausal atrophic vaginitis | CPT/HCPCS: 87624; G0123 ==

== ENCOUNTER → 2022-11-11 | Outpatient (CLI) | payer MEDICARE ==
[2022-11-11 15:23] LABS: BASO % 0.6 % (0.0-1.0); EOS # 0.1 10^3/uL (0.0-0.5); HEMATOCRIT 39.6 % (36.0-47.0); HEMOGLOBIN 13.1 g/dl (12.0-15.5); LYMPH # 1.5 10^3/uL (1.5-5.0); LYMPH % 29.4 % (24.0-44.0); MEAN CORPUSCULAR HEMOGLOBIN 31.6 pg (27.0-33.0); MEAN CORPUSCULAR HGB CONC 33.1 g/dl (32.0-36.5); MEAN CORPUSCULAR VOLUME 95.7 fl (80.0-96.0); MONO # 0.6 10^3/uL (0.0-0.8); MONO % 12.1 % (2.0-8.0); NEUTROPHILS # 2.9 10^3/uL (1.5-8.5); NEUTROPHILS % 55.7 % (36.0-66.0); PLATELET COUNT, AUTOMATED 157 10^3/uL (150-450); RED BLOOD COUNT 4.14 10^6/uL (4.00-5.40); WHITE BLOOD COUNT 5.1 10^3/uL (4.0-10.0)
[2022-11-11 15:28] LABS: ALKALINE PHOSPHATASE 88 U/L (46-116); ALT/SGPT 27 U/L (7.0-40); AST/SGOT 25 U/L (<34); BILIRUBIN,TOTAL 0.8 MG/DL (0.3-1.2); BLOOD UREA NITROGEN 26 MG/DL (9-23); CALCIUM LEVEL 9.1 MG/DL (8.3-10.6); CARBON DIOXIDE LEVEL 31 MMOL/L (20-31); CHLORIDE LEVEL 103 MMOL/L (98-107); CREATININE FOR GFR 0.93 MG/DL (0.55-1.30); GLOMERULAR FILTRATION RATE > 60.0 (>39); GLUCOSE, FASTING 104 MG/DL (74-106); POTASSIUM SERUM 4.8 MMOL/L (3.5-5.1); SODIUM LEVEL 138 MMOL/L (136-145); TOTAL PROTEIN 6.9 G/DL (5.7-8.2)
[2022-11-11 15:30] LABS: FERRITIN 58.7 NG/ML (7.3-270.7)
== END ==
LOC: M LABDRWAD 10:36
PROVIDERS: ATTEND Family Medicine
DX: I10 Essential (primary) hypertension (principal); D75.89 Other specified diseases of blood and blood-forming organs

== ENCOUNTER → 2023-04-22 | Outpatient (REF) | payer MEDICARE ==
[2023-04-22 14:33] LABS: BASO % 0.7 % (0.0-1.0); EOS # 0.1 10^3/uL (0.0-0.5); HEMATOCRIT 37.4 % (36.0-47.0); HEMOGLOBIN 12.2 g/dl (12.0-15.5); LYMPH # 1.4 10^3/uL (1.5-5.0); LYMPH % 33.3 % (24.0-44.0); MEAN CORPUSCULAR HEMOGLOBIN 31.3 pg (27.0-33.0); MEAN CORPUSCULAR HGB CONC 32.6 g/dl (32.0-36.5); MEAN CORPUSCULAR VOLUME 95.9 fl (80.0-96.0); MONO # 0.5 10^3/uL (0.0-0.8); MONO % 11.9 % (2.0-8.0); NEUTROPHILS # 2.2 10^3/uL (1.5-8.5); NEUTROPHILS % 51.1 % (36.0-66.0); PLATELET COUNT, AUTOMATED 187 10^3/uL (150-450); WHITE BLOOD COUNT 4.3 10^3/uL (4.0-10.0)
[2023-04-22 14:39] LABS: ALBUMIN 3.6 G/DL (3.2-5.2); BILIRUBIN,TOTAL 0.8 MG/DL (0.3-1.2); CALCIUM LEVEL 9.3 MG/DL (8.3-10.6); CHOLESTEROL RISK RATIO 2.44 (<5); CREATININE FOR GFR 0.97 MG/DL (0.55-1.30); GLOMERULAR FILTRATION RATE 59.8 (>39); HDL CHOLESTEROL 64.7 MG/DL (>40); LDL CHOLESTEROL 83.5 MG/DL (<100); NON-HDL-C 93.3 MG/DL; POTASSIUM SERUM 4.9 MMOL/L (3.5-5.1); TOTAL PROTEIN 6.3 G/DL (5.7-8.2)
[2023-04-22 14:40] LABS: PTH INTACT 53.2 PG/ML (18.5-88.0)
[2023-04-22 14:41] LABS: FERRITIN 69.5 NG/ML (7.3-270.7); TOTAL 25(OH) VITAMIN D 62.6 NG/ML (20.0-100.0)
== END ==
LOC: M SFHCADAM 08:22
PROVIDERS: ATTEND Family Medicine
DX: I50.32 Chronic diastolic (congestive) heart failure (principal); D75.89 Other specified diseases of blood and blood-forming organs; E55.9 Vitamin D deficiency, unspecified; Z79.899 Other long term (current) drug therapy

== ENCOUNTER → 2023-04-28 | Outpatient (CLI) | payer MEDICARE | LOC: M WHC 11:45 | PROVIDERS: ATTEND Nurse Practitioner Family | DX: Z12.31 Encounter for screening mammogram for malignant neoplasm of breast (principal) ==

== ENCOUNTER → 2023-09-22 | Outpatient (REF) | payer MEDICARE ==
[2023-09-22 14:38] LABS: BASO % 0.6 % (0.0-1.0); EOS # 0.1 10^3/uL (0.0-0.5); EOS % 1.7 % (0.0-3.0); LYMPH # 1.3 10^3/uL (1.5-5.0); LYMPH % 28.4 % (24.0-44.0); MEAN CORPUSCULAR HEMOGLOBIN 31.5 pg (27.0-33.0); MEAN CORPUSCULAR HGB CONC 33.3 g/dl (32.0-36.5); MEAN CORPUSCULAR VOLUME 94.4 fl (80.0-96.0); MONO # 0.5 10^3/uL (0.0-0.8); MONO % 10.2 % (2.0-8.0); NEUTROPHILS # 2.8 10^3/uL (1.5-8.5); NEUTROPHILS % 58.9 % (36.0-66.0); PLATELET COUNT, AUTOMATED 139 10^3/uL (150-450); RED BLOOD COUNT 4.13 10^6/uL (4.00-5.40); WHITE BLOOD COUNT 4.7 10^3/uL (4.0-10.0)
[2023-09-22 15:05] LABS: HEMOGLOBIN A1c 5.8 % (4.0-6.0)
[2023-09-22 15:14] LABS: ALBUMIN 4.2 G/DL (3.2-5.2); ALKALINE PHOSPHATASE 92 U/L (46-116); ALT/SGPT 40 U/L (7.0-40); AST/SGOT 30 U/L (<34); BLOOD UREA NITROGEN 29 MG/DL (9-23); CARBON DIOXIDE LEVEL 31 MMOL/L (20-31); CHLORIDE LEVEL 103 MMOL/L (98-107); CREATININE FOR GFR 0.95 MG/DL (0.55-1.30); FERRITIN 54.3 NG/ML (7.3-270.7); GLOMERULAR FILTRATION RATE > 60.0 (>39); GLUCOSE, FASTING 101 MG/DL (74-106); MAGNESIUM LEVEL 1.9 MG/DL (1.8-2.4); POTASSIUM SERUM 4.2 MMOL/L (3.5-5.1); SODIUM LEVEL 138 MMOL/L (136-145); TOTAL PROTEIN 6.8 G/DL (5.7-8.2)
[2023-09-22 15:15] LABS: VITAMIN B12 LEVEL 531 PG/ML (211-911)
== END ==
LOC: M SFHCPLAZ 10:28
PROVIDERS: ATTEND Family Medicine
DX: I10 Essential (primary) hypertension (principal); I48.0 Paroxysmal atrial fibrillation; I50.32 Chronic diastolic (congestive) heart failure; Z79.899 Other long term (current) drug therapy

== ENCOUNTER → 2024-03-28 | Outpatient (CLI) | payer MEDICARE ==
[2024-03-28 13:45] LABS: BASO % 0.7 % (0.0-1.0); EOS # 0.1 10^3/uL (0.0-0.5); HEMATOCRIT 37.8 % (36.0-47.0); HEMOGLOBIN 12.3 g/dl (12.0-15.5); LYMPH # 1.4 10^3/uL (1.5-5.0); LYMPH % 33.6 % (24.0-44.0); MEAN CORPUSCULAR HEMOGLOBIN 31.1 pg (27.0-33.0); MEAN CORPUSCULAR HGB CONC 32.5 g/dl (32.0-36.5); MEAN CORPUSCULAR VOLUME 95.5 fl (80.0-96.0); MONO # 0.4 10^3/uL (0.0-0.8); NEUTROPHILS # 2.2 10^3/uL (1.5-8.5); NEUTROPHILS % 52.2 % (36.0-66.0); PLATELET COUNT, AUTOMATED 129 10^3/uL (150-450); RED BLOOD COUNT 3.96 10^6/uL (4.00-5.40); WHITE BLOOD COUNT 4.3 10^3/uL (4.0-10.0)
[2024-03-28 13:48] LABS: ALKALINE PHOSPHATASE 86 U/L (46-116); ALT/SGPT 29 U/L (7.0-40); AST/SGOT 17 U/L (<34); BILIRUBIN,TOTAL 0.7 MG/DL (0.3-1.2); BLOOD UREA NITROGEN 31 MG/DL (9-23); CALCIUM LEVEL 9.3 MG/DL (8.3-10.6); CARBON DIOXIDE LEVEL 31 MMOL/L (20-31); CHLORIDE LEVEL 103 MMOL/L (98-107); CREATININE FOR GFR 0.92 MG/DL (0.55-1.30); GLOMERULAR FILTRATION RATE > 60.0 (>39); GLUCOSE, FASTING 103 MG/DL (74-106); POTASSIUM SERUM 4.2 MMOL/L (3.5-5.1); SODIUM LEVEL 139 MMOL/L (136-145); TOTAL PROTEIN 6.7 G/DL (5.7-8.2)
[2024-03-28 13:51] LABS: TOTAL 25(OH) VITAMIN D 59.4 NG/ML (20.0-100.0)
[2024-03-28 14:15] LABS: HEMOGLOBIN A1c 5.6 % (4.0-6.0)
[2024-03-28 14:41] LABS: CREATININE, URINE 8.5 MG/DL; MALB URINE SIEMENS < 3.0 MG/L; MAU/CREAT RATIO 35.2 MCG/MG (0.0-30.0)
[2024-03-31 01:47] LABS: LDH 149 U/L (120-250)
[2024-03-31 12:07] LABS: (LD) FRACTION 1 36 % (18-32); (LD) FRACTION 2 27 % (29-42); (LD) FRACTION 3 20 % (14-30); (LD) FRACTION 4 7 % (6-13); (LD) FRACTION 5 9 % (5-18)
[2024-04-05 09:49] LABS: JAK2 MUTATIONS FOR PATH SENDOU See Pathology Report
== END ==
LOC: M LAB 09:07
PROVIDERS: ATTEND Family Medicine
DX: E55.9 Vitamin D deficiency, unspecified (principal); I50.32 Chronic diastolic (congestive) heart failure; D75.89 Other specified diseases of blood and blood-forming organs; R73.01 Impaired fasting glucose; D72.819 Decreased white blood cell count, unspecified

== ENCOUNTER 2024-04-05 14:44 | Outpatient (RCR) | payer MEDICARE | END 2024-04-17 | LOC: M PT 14:44 | PROVIDERS: ATTEND Orthopaedic Surgery | DX: M25.562 Pain in left knee (principal) ==

== ENCOUNTER → 2024-04-13 | Outpatient (CLI) | payer MEDICARE ==
[2024-04-13 13:54] LABS: BASO % 0.6 % (0.0-1.0); EOS # 0.1 10^3/uL (0.0-0.5); EOS % 2.3 % (0.0-3.0); HEMATOCRIT 37.4 % (36.0-47.0); HEMOGLOBIN 12.4 g/dl (12.0-15.5); LYMPH # 1.5 10^3/uL (1.5-5.0); LYMPH % 29.4 % (24.0-44.0); MEAN CORPUSCULAR HEMOGLOBIN 31.4 pg (27.0-33.0); MEAN CORPUSCULAR HGB CONC 33.2 g/dl (32.0-36.5); MEAN CORPUSCULAR VOLUME 94.7 fl (80.0-96.0); MONO # 0.6 10^3/uL (0.0-0.8); MONO % 12.5 % (2.0-8.0); NEUTROPHILS # 2.8 10^3/uL (1.5-8.5); PLATELET COUNT, AUTOMATED 136 10^3/uL (150-450); RED BLOOD COUNT 3.95 10^6/uL (4.00-5.40); WHITE BLOOD COUNT 5.1 10^3/uL (4.0-10.0)
[2024-04-13 13:56] LABS: PERCENT SATURATION 34.2 % (13.2-45.0)
[2024-04-13 13:58] LABS: FERRITIN 45.4 NG/ML (7.3-270.7)
== END ==
LOC: M PLALAB 10:38
PROVIDERS: ATTEND Orthopaedic Surgery
DX: M25.562 Pain in left knee (principal); M17.12 Unilateral primary osteoarthritis, left knee

== ENCOUNTER → 2024-05-05 | Outpatient (CLI) | payer MEDICARE | LOC: M WHC 11:24 | PROVIDERS: ATTEND Family Medicine | DX: Z13.820 Encounter for screening for osteoporosis (principal); M85.851 Other specified disorders of bone density and structure, right thigh; M85.852 Other specified disorders of bone density and structure, left thigh ==

== ENCOUNTER → 2024-05-05 | Outpatient (CLI) | payer MEDICARE | LOC: M WHC 11:23 | PROVIDERS: ATTEND Nurse Practitioner Family | DX: Z12.31 Encounter for screening mammogram for malignant neoplasm of breast (principal) ==

== ENCOUNTER → 2024-06-09 | Outpatient (CLI) | payer MEDICARE ==
[2024-06-09 15:45] LABS: BASO % 0.5 % (0.0-1.0); EOS # 0.4 10^3/uL (0.0-0.5); EOS % 4.8 % (0.0-3.0); HEMATOCRIT 32.7 % (36.0-47.0); HEMOGLOBIN 10.4 g/dl (12.0-15.5); LYMPH # 1.3 10^3/uL (1.5-5.0); LYMPH % 16.5 % (24.0-44.0); MEAN CORPUSCULAR HEMOGLOBIN 31.7 pg (27.0-33.0); MEAN CORPUSCULAR HGB CONC 31.8 g/dl (32.0-36.5); MEAN CORPUSCULAR VOLUME 99.7 fl (80.0-96.0); MONO # 0.8 10^3/uL (0.0-0.8); MONO % 10.2 % (2.0-8.0); NEUTROPHILS # 5.3 10^3/uL (1.5-8.5); NEUTROPHILS % 67.4 % (36.0-66.0); PLATELET COUNT, AUTOMATED 200 10^3/uL (150-450); RED BLOOD COUNT 3.28 10^6/uL (4.00-5.40); WHITE BLOOD COUNT 7.9 10^3/uL (4.0-10.0)
[2024-06-09 15:49] LABS: ALBUMIN 3.7 G/DL (3.2-5.2); ALKALINE PHOSPHATASE 104 U/L (35-104); ALT/SGPT 26 U/L (7.0-40); AST/SGOT 16 U/L (<34); BILIRUBIN,TOTAL 0.4 MG/DL (0.3-1.2); BLOOD UREA NITROGEN 20 MG/DL (9-23); CALCIUM LEVEL 10.2 MG/DL (8.3-10.6); CARBON DIOXIDE LEVEL 32 MMOL/L (20-31); CHLORIDE LEVEL 103 MMOL/L (98-107); CREATININE FOR GFR 0.72 MG/DL (0.55-1.30); GLOMERULAR FILTRATION RATE > 60.0 (>39); GLUCOSE, FASTING 103 MG/DL (74-106); MAGNESIUM LEVEL 2.1 MG/DL (1.8-2.4); POTASSIUM SERUM 4.8 MMOL/L (3.5-5.1); SODIUM LEVEL 142 MMOL/L (136-145); TOTAL PROTEIN 7.3 G/DL (5.7-8.2)
[2024-06-09 15:51] LABS: FERRITIN 169.2 NG/ML (7.3-270.7)
== END ==
LOC: M PLALAB 12:03
DX: I10 Essential (primary) hypertension (principal); D50.8 Other iron deficiency anemias; I63.412 Cerebral infarction due to embolism of left middle cerebral artery; I50.32 Chronic diastolic (congestive) heart failure

== ENCOUNTER → 2024-06-12 | Outpatient (CLI) | payer MEDICARE | LOC: M PLAIMG 12:54 | PROVIDERS: ATTEND Nurse Practitioner Family | DX: I61.9 Nontraumatic intracerebral hemorrhage, unspecified (principal) ==

== ENCOUNTER 2024-06-13 07:54 | Outpatient (RCR) | payer MEDICARE | END 2024-06-17 | LOC: M PT 07:54 | PROVIDERS: ATTEND Nurse Practitioner | DX: M17.12 Unilateral primary osteoarthritis, left knee (principal); M25.562 Pain in left knee; I69.320 Aphasia following cerebral infarction ==

== ENCOUNTER 2024-07-17 12:01 | Outpatient (RCR) | payer MEDICARE | END 2024-07-18 | LOC: M PT 12:01 | PROVIDERS: ATTEND Nurse Practitioner | DX: Z47.89 Encounter for other orthopedic aftercare (principal); Z96.652 Presence of left artificial knee joint; I63.411 Cerebral infarction due to embolism of right middle cerebral artery; R47.01 Aphasia ==

== ENCOUNTER 2024-08-17 13:21 | Outpatient (RCR) | payer MEDICARE | END 2024-08-18 | LOC: M ST 13:21 | PROVIDERS: ATTEND Nurse Practitioner | DX: M17.12 Unilateral primary osteoarthritis, left knee (principal); M25.562 Pain in left knee; I69.320 Aphasia following cerebral infarction ==

== ENCOUNTER 2024-09-14 13:42 | Outpatient (RCR) | payer MEDICARE | END 2024-09-15 | LOC: M ST 13:42 | PROVIDERS: ATTEND Nurse Practitioner | DX: Z96.652 Presence of left artificial knee joint (principal); M17.12 Unilateral primary osteoarthritis, left knee; I69.320 Aphasia following cerebral infarction; M25.562 Pain in left knee ==

== ENCOUNTER 2024-10-05 13:55 | Outpatient (RCR) | payer MEDICARE ==
[~2024-10-05 13:55] MED LIST changes: -D31000TA PO; -METO1TAB87 PO; -MULTTAB61 PO; -RAMI5CAP60 PO
[2024-10-06] MEDS ORDERED: METO1TAB87 PO (12:15)
[2024-10-06] MEDS ORDERED: RAMI5CAP60 PO (12:15)
[2024-10-06] MEDS ORDERED: D31000TA PO (12:15)
[2024-10-06] MEDS ORDERED: MULTTAB61 PO (12:15)
== END 2024-10-16 ==
LOC: M ST 13:55
PROVIDERS: ATTEND Nurse Practitioner
DX: I63.411 Cerebral infarction due to embolism of right middle cerebral artery (principal); R47.01 Aphasia; M25.562 Pain in left knee; M17.12 Unilateral primary osteoarthritis, left knee

== ENCOUNTER → 2024-10-05 | Outpatient (REF) | payer MEDICARE ==
[~2024-10-05] MED LIST changes: +D31000TA PO; +METO1TAB87 PO; +MULTTAB61 PO; +RAMI5CAP60 PO
[2024-10-05 13:49] LABS: BASO % 0.9 % (0.0-1.0); EOS # 0.1 10^3/uL (0.0-0.5); EOS % 3.8 % (0.0-3.0); LYMPH # 0.8 10^3/uL (1.5-5.0); LYMPH % 23.7 % (24.0-44.0); MEAN CORPUSCULAR HEMOGLOBIN 30.1 pg (27.0-33.0); MEAN CORPUSCULAR HGB CONC 32.4 g/dl (32.0-36.5); MEAN CORPUSCULAR VOLUME 92.7 fl (80.0-96.0); MONO # 0.5 10^3/uL (0.0-0.8); MONO % 14.6 % (2.0-8.0); NEUTROPHILS # 1.9 10^3/uL (1.5-8.5); NEUTROPHILS % 56.7 % (36.0-66.0); PLATELET COUNT, AUTOMATED 133 10^3/uL (150-450); RED BLOOD COUNT 3.99 10^6/uL (4.00-5.40); WHITE BLOOD COUNT 3.4 10^3/uL (4.0-10.0)
[2024-10-05 13:55] LABS: ALBUMIN 3.8 G/DL (3.2-5.2); ALKALINE PHOSPHATASE 122 U/L (35-104); ALT/SGPT 50 U/L (7.0-40); AST/SGOT 32 U/L (<34); BILIRUBIN,TOTAL 0.9 MG/DL (0.3-1.2); BLOOD UREA NITROGEN 27 MG/DL (9-23); CALCIUM LEVEL 9.5 MG/DL (8.3-10.6); CARBON DIOXIDE LEVEL 30 MMOL/L (20-31); CHLORIDE LEVEL 105 MMOL/L (98-107); GLOMERULAR FILTRATION RATE > 60.0 (>39); GLUCOSE, FASTING 99 MG/DL (74-106); MAGNESIUM LEVEL 1.9 MG/DL (1.8-2.4); POTASSIUM SERUM 4.8 MMOL/L (3.5-5.1); SODIUM LEVEL 142 MMOL/L (136-145); TOTAL PROTEIN 6.8 G/DL (5.7-8.2)
[2024-10-05 14:12] LABS: CREATININE,RANDOM URINE 95.7 MG/DL
[2024-10-05 14:51] LABS: HEMOGLOBIN A1c 5.8 % (4.0-6.0)
[2024-10-06 10:28] LABS: PROTEIN, TOTAL SO 6.7 g/dL (6.1-8.1)
[2024-10-06 11:53] LABS: INSULIN LEVEL 3.4 uIU/mL (<=18.4)
[2024-10-09 10:03] LABS: LDH 163 U/L (120-250)
[2024-10-10 09:08] LABS: ALBUMIN SO 4.2 g/dL (3.8-4.8); ALPHA 1 GLOBULINS SO 0.2 g/dL (0.2-0.3); ALPHA 2 GLOBULINS SO 0.5 g/dL (0.5-0.9); BETA 2 GLOBULIN SO 0.3 g/dL (0.2-0.5); BETA GLOBULIN SO 0.5 g/dL (0.4-0.6); GAMMA GLOBULINS SO 0.9 g/dL (0.8-1.7)
[2024-10-10 23:57] LABS: (LD) FRACTION 1 29 % (18-32); (LD) FRACTION 2 32 % (29-42); (LD) FRACTION 3 22 % (14-30); (LD) FRACTION 4 8 % (6-13); (LD) FRACTION 5 8 % (5-18)
== END ==
LOC: M SFHCPLAZ 08:50
PROVIDERS: ATTEND Family Medicine
DX: D69.6 Thrombocytopenia, unspecified (principal); D75.89 Other specified diseases of blood and blood-forming organs; I50.32 Chronic diastolic (congestive) heart failure; R73.01 Impaired fasting glucose; D72.819 Decreased white blood cell count, unspecified

== ENCOUNTER 2024-10-06 08:46 | Inpatient (IN) | payer OTHER, MEDICARE ==
[~2024-10-06] VITALS: Ht 165.1 cm; Wt 55.8 kg
[2024-10-06] MEDS: ACETAMINOPHEN *IV* 1,000 MG in IV 1 EA IV ONE (09:55)
[2024-10-06] MEDS ORDERED: ISOVUE-370 76% 100ML VIAL As Ordered ONE (09:59)
[2024-10-06] MEDS ORDERED: D31000TA PO (12:15)
[2024-10-06] MEDS ORDERED: METO1TAB87 PO (12:15)
[2024-10-06] MEDS ORDERED: MULTTAB61 PO (12:15)
[2024-10-06] MEDS ORDERED: RAMI5CAP60 PO (12:15)
[2024-10-06] MEDS ORDERED: HOME MED LIST COMPLETE! XX SCH (12:20)
[2024-10-06 12:39] LABS: HEMATOCRIT 35.9 % (36.0-47.0); HEMOGLOBIN 11.7 g/dl (12.0-15.5); MEAN CORPUSCULAR HEMOGLOBIN 29.8 pg (27.0-33.0); MEAN CORPUSCULAR HGB CONC 32.6 g/dl (32.0-36.5); MEAN CORPUSCULAR VOLUME 91.3 fl (80.0-96.0); PLATELET COUNT, AUTOMATED 119 10^3/uL (150-450); RED BLOOD COUNT 3.93 10^6/uL (4.00-5.40); WHITE BLOOD COUNT 9.9 10^3/uL (4.0-10.0)
[2024-10-06] MEDS ORDERED: ONDANSETRON 4MG 2ML VIAL IV PRN (12:45)
[2024-10-06] MEDS ORDERED: ACETAMINOPHEN 325 MG TAB PO PRN (12:45)
[2024-10-06] MEDS ORDERED: MORPHINE 2 MG/ML 1ML VIAL IV PRN ×4 (12:45→13:00)
[2024-10-06] MEDS ORDERED: IPRATROPIUM 0.5MG/ALBUTEROL 2.5MG INH SOL UD 3ML (DUONEB) NEB PRN (12:45)
[2024-10-06] MEDS ORDERED: MORPHINE 4 MG/ML 1ML VIAL IV PRN (13:00)
[2024-10-06 13:07] LABS: ALBUMIN 3.7 G/DL (3.2-5.2); ALKALINE PHOSPHATASE 116 U/L (35-104); ALT/SGPT 58 U/L (7.0-40); AST/SGOT 51 U/L (<34); BILIRUBIN,TOTAL 0.9 MG/DL (0.3-1.2); BLOOD UREA NITROGEN 21 MG/DL (9-23); CALCIUM LEVEL 8.9 MG/DL (8.3-10.6); CARBON DIOXIDE LEVEL 29 MMOL/L (20-31); CHLORIDE LEVEL 103 MMOL/L (98-107); GLOMERULAR FILTRATION RATE > 60.0 (>39); GLUCOSE, FASTING 112 MG/DL (74-106); POTASSIUM SERUM 4.1 MMOL/L (3.5-5.1); SODIUM LEVEL 142 MMOL/L (136-145); TOTAL PROTEIN 6.7 G/DL (5.7-8.2)
[2024-10-06] MEDS: NS (Normal Saline) 0.9% 1,000 ML IV SCH (13:22)
[2024-10-06] MEDS: IPRATROPIUM 0.5MG/ALBUTEROL 2.5MG INH SOL UD 3ML (DUONEB) NEB SCH (13:44)
[2024-10-06] MEDS: KETOROLAC 30 MG/ML 1ML VIAL IV PRN (15:31)
[2024-10-06 16:07] VITALS: BP 147/67; TEMP 98.9; O2SAT 96
[2024-10-06 19:30] VITALS: BP 145/65; TEMP 98.2; O2SAT 96
[2024-10-06] MEDS: METOPROLOL TART 25 MG TABLET PO SCH (20:09)
[2024-10-06 23:10] VITALS: BP 136/62; TEMP 97.6; O2SAT 98
[2024-10-07 04:20] VITALS: BP 151/67; TEMP 97.4; O2SAT 95
[2024-10-07 05:47] LABS: HEMATOCRIT 29.7 % (36.0-47.0); HEMOGLOBIN 9.9 g/dl (12.0-15.5); MEAN CORPUSCULAR HEMOGLOBIN 30.1 pg (27.0-33.0); MEAN CORPUSCULAR HGB CONC 33.3 g/dl (32.0-36.5); MEAN CORPUSCULAR VOLUME 90.3 fl (80.0-96.0); PLATELET COUNT, AUTOMATED 108 10^3/uL (150-450); RED BLOOD COUNT 3.29 10^6/uL (4.00-5.40); WHITE BLOOD COUNT 5.4 10^3/uL (4.0-10.0)
[2024-10-07 06:10] LABS: BLOOD UREA NITROGEN 21 MG/DL (9-23); CALCIUM LEVEL 8.9 MG/DL (8.3-10.6); CARBON DIOXIDE LEVEL 28 MMOL/L (20-31); CHLORIDE LEVEL 108 MMOL/L (98-107); CREATININE FOR GFR 0.72 MG/DL (0.55-1.30); GLOMERULAR FILTRATION RATE > 60.0 (>39); GLUCOSE, FASTING 112 MG/DL (74-106); POTASSIUM SERUM 4.1 MMOL/L (3.5-5.1); SODIUM LEVEL 141 MMOL/L (136-145)
[2024-10-07 08:13] VITALS: BP 133/62; TEMP 98.4; O2SAT 97
[2024-10-07] MEDS: MULTIVITAMINS/MINERALS THERAP 1 TAB PO SCH (09:55)
[2024-10-07 09:56] VITALS: BP 133/62
[2024-10-07] MEDS: ramipriL 5 MG CAP PO SCH (09:56)
[2024-10-07] MEDS: PANTOPRAZOLE 40MG VIAL IV SCH (09:56)
[2024-10-07 12:01] VITALS: BP 152/66; TEMP 97.7; O2SAT 99
[2024-10-07] MEDS ORDERED: RIVAROXABAN 20MG TAB (XARELTO) PO SCH (21:00)
== END 2024-10-07 13:02 | disposition home or self-care (01) | DRG 135 ==
LOC: M ED 08:46 → EDBD 08:46 → M ED INP 12:45 → M PCU 14:55
PROVIDERS: ADMIT Surgery; ATTEND Surgery
DX: S27.321A Contusion of lung, unilateral, initial encounter (principal); S22.41XA Multiple fractures of ribs, right side, initial encounter for closed fracture; I48.91 Unspecified atrial fibrillation; I69.320 Aphasia following cerebral infarction; M19.90 Unspecified osteoarthritis, unspecified site; I10 Essential (primary) hypertension; Z79.899 Other long term (current) drug therapy; V43.52XA Car driver injured in collision with other type car in traffic accident, initial encounter

== ENCOUNTER → 2024-10-13 | Outpatient (CLI) | payer MEDICARE ==
[~2024-10-13] MED LIST changes: +D31000TA PO; +METO1TAB87 PO; +MULTTAB61 PO; +RAMI5CAP60 PO
[2024-10-13 13:58] LABS: BASO % 0.6 % (0.0-1.0); EOS # 0.2 10^3/uL (0.0-0.5); EOS % 3.6 % (0.0-3.0); HEMATOCRIT 31.3 % (36.0-47.0); HEMOGLOBIN 10.1 g/dl (12.0-15.5); LYMPH # 0.9 10^3/uL (1.5-5.0); MEAN CORPUSCULAR HEMOGLOBIN 29.6 pg (27.0-33.0); MEAN CORPUSCULAR HGB CONC 32.3 g/dl (32.0-36.5); MEAN CORPUSCULAR VOLUME 91.8 fl (80.0-96.0); MONO # 0.8 10^3/uL (0.0-0.8); MONO % 15.5 % (2.0-8.0); NEUTROPHILS # 3.4 10^3/uL (1.5-8.5); NEUTROPHILS % 63.9 % (36.0-66.0); PLATELET COUNT, AUTOMATED 167 10^3/uL (150-450); RED BLOOD COUNT 3.41 10^6/uL (4.00-5.40); WHITE BLOOD COUNT 5.3 10^3/uL (4.0-10.0)
[2024-10-13 14:25] LABS: IRON (FE) 41 UG/DL (50-170); PERCENT SATURATION 11.3 % (13.2-45.0); TOTAL IRON BINDING CAPACITY 364 UG/DL (250-425)
[2024-10-13 14:26] LABS: ALBUMIN 3.6 G/DL (3.2-5.2); ALKALINE PHOSPHATASE 130 U/L (35-104); ALT/SGPT 32 U/L (7.0-40); AST/SGOT 22 U/L (<34); BILIRUBIN,TOTAL 1.1 MG/DL (0.3-1.2); BLOOD UREA NITROGEN 21 MG/DL (9-23); CALCIUM LEVEL 9.5 MG/DL (8.3-10.6); CARBON DIOXIDE LEVEL 31 MMOL/L (20-31); CHLORIDE LEVEL 102 MMOL/L (98-107); CREATININE FOR GFR 0.77 MG/DL (0.55-1.30); GLOMERULAR FILTRATION RATE > 60.0 (>39); GLUCOSE, FASTING 104 MG/DL (74-106); POTASSIUM SERUM 4.7 MMOL/L (3.5-5.1); SODIUM LEVEL 139 MMOL/L (136-145); TOTAL PROTEIN 6.9 G/DL (5.7-8.2)
[2024-10-13 14:27] LABS: FERRITIN 111.5 NG/ML (7.3-270.7); PTH INTACT 35.1 PG/ML (18.5-88.0)
[2024-10-13 15:12] LABS: HEMOGLOBIN A1c 5.7 % (4.0-6.0)
== END ==
LOC: M PLALAB 09:10
PROVIDERS: ATTEND Family Medicine
DX: D75.89 Other specified diseases of blood and blood-forming organs (principal); I50.32 Chronic diastolic (congestive) heart failure; R73.01 Impaired fasting glucose; Z79.899 Other long term (current) drug therapy

== ENCOUNTER 2024-10-30 10:50 | Outpatient (RCR) | payer MEDICARE | END 2024-11-15 | LOC: M ST 10:50 | PROVIDERS: ATTEND Nurse Practitioner | DX: R47.01 Aphasia (principal); Z47.89 Encounter for other orthopedic aftercare; Z96.652 Presence of left artificial knee joint; M17.12 Unilateral primary osteoarthritis, left knee ==

== ENCOUNTER → 2025-02-20 | Outpatient (REF) | payer MEDICARE ==
[2025-02-20 13:47] LABS: ALT/SGPT 53.0 U/L (7.0-40); AST/SGOT 38.0 U/L (<34); CALCIUM LEVEL 9.5 MG/DL (8.3-10.6); CARBON DIOXIDE LEVEL 30.0 MMOL/L (20-31); CHLORIDE LEVEL 102.0 MMOL/L (98-107); CREATININE FOR GFR 0.84 MG/DL (0.55-1.30); GLOMERULAR FILTRATION RATE 72.0 (>39); POTASSIUM SERUM 4.4 MMOL/L (3.5-5.1); PTH INTACT 31.6 PG/ML (18.5-88.0); SODIUM LEVEL 143.0 MMOL/L (136-145)
[2025-02-20 13:48] LABS: BASO # 0.0 10^3/uL (0.0-0.2); BASO % 0.7 % (0.0-1.0); EOS # 0.2 10^3/uL (0.0-0.5); EOS % 3.3 % (0.0-3.0); LYMPH # 0.9 10^3/uL (1.5-5.0); LYMPH % 20.8 % (24.0-44.0); MONO # 0.6 10^3/uL (0.0-0.8); MONO % 13.3 % (2.0-8.0); NEUTROPHILS # 2.8 10^3/uL (1.5-8.5); NEUTROPHILS % 61.7 % (36.0-66.0); PLATELET COUNT, AUTOMATED 144 10^3/uL (150-450)
[2025-02-20 13:49] LABS: TOTAL 25(OH) VITAMIN D 71.7 NG/ML (20.0-100.0)
== END ==
LOC: M SFHCPLAZ 08:44
PROVIDERS: ATTEND Family Medicine
DX: I10 Essential (primary) hypertension (principal); E55.9 Vitamin D deficiency, unspecified; I48.0 Paroxysmal atrial fibrillation; I50.32 Chronic diastolic (congestive) heart failure

== ENCOUNTER 2025-02-28 08:21 | Emergency (ER) | payer MEDICARE ==
[~2025-02-28] VITALS: Ht 165.1 cm; Wt 54.4 kg
[2025-02-28] MEDS: METOPROLOL TART 25 MG TABLET PO ONE (11:26)
[2025-02-28 11:52] VITALS: BP 203/91
[2025-02-28 12:02] LABS: BASO # 0.0 10^3/uL (0.0-0.2); BASO % 0.7 % (0.0-1.0); EOS # 0.0 10^3/uL (0.0-0.5); EOS % 0.9 % (0.0-3.0); LYMPH # 0.8 10^3/uL (1.5-5.0); LYMPH % 19.0 % (24.0-44.0); MONO # 0.5 10^3/uL (0.0-0.8); MONO % 10.3 % (2.0-8.0); NEUTROPHILS # 3.0 10^3/uL (1.5-8.5); NEUTROPHILS % 68.9 % (36.0-66.0); PLATELET COUNT, AUTOMATED 143 10^3/uL (150-450)
[2025-02-28 12:15] LABS: INR 1.4
[2025-02-28 12:36] LABS: ALT/SGPT 63.0 U/L (7.0-40); AST/SGOT 39.0 U/L (<34); CALCIUM LEVEL 9.5 MG/DL (8.3-10.6); CARBON DIOXIDE LEVEL 30.0 MMOL/L (20-31); CHLORIDE LEVEL 103.0 MMOL/L (98-107); CK-MB VALUE MASS 1.2 NG/ML (<3.6); CREATININE FOR GFR 0.8 MG/DL (0.55-1.30); GLOMERULAR FILTRATION RATE 76.3 (>39); POTASSIUM SERUM 4.4 MMOL/L (3.5-5.1); SODIUM LEVEL 141.0 MMOL/L (136-145)
[2025-02-28 12:39] LABS: CPK CREATINE PHOSPHOKINASE 48.0 U/L (34-145); MB/CK RELATIVE INDEX 2.5 (< OR =4)
[2025-02-28 14:12] LABS: CK-MB VALUE MASS 1.6 NG/ML (<3.6)
[2025-02-28 14:17] LABS: CPK CREATINE PHOSPHOKINASE 44.0 U/L (34-145); MB/CK RELATIVE INDEX 3.63 (< OR =4)
[2025-02-28 14:30] VITALS: BP 158/74; TEMP 97.6; O2SAT 97
== END 2025-02-28 14:53 | disposition home or self-care (01) ==
LOC: M ED 08:21
DX: I10 Essential (primary) hypertension (principal); I27.20 Pulmonary hypertension, unspecified; I48.91 Unspecified atrial fibrillation; E55.9 Vitamin D deficiency, unspecified; Z86.73 Personal history of transient ischemic attack (TIA), and cerebral infarction without residual deficits; Z79.01 Long term (current) use of anticoagulants; Z79.899 Other long term (current) drug therapy; Z79.810 Long term (current) use of selective estrogen receptor modulators (SERMs)

== ENCOUNTER → 2025-03-08 | Outpatient (CLI) | payer MEDICARE ==
[2025-03-08 14:58] LABS: ALT/SGPT 39.0 U/L (7.0-40); AST/SGOT 38.0 U/L (<34); CALCIUM LEVEL 9.9 MG/DL (8.3-10.6); CARBON DIOXIDE LEVEL 33.0 MMOL/L (20-31); CHLORIDE LEVEL 101.0 MMOL/L (98-107); CREATININE FOR GFR 0.97 MG/DL (0.55-1.30); GLOMERULAR FILTRATION RATE 60.6 (>39); MAGNESIUM LEVEL 2.0 MG/DL (1.8-2.4); POTASSIUM SERUM 4.8 MMOL/L (3.5-5.1); SODIUM LEVEL 142.0 MMOL/L (136-145)
[2025-03-08 14:59] LABS: BASO # 0.0 10^3/uL (0.0-0.2); BASO % 0.8 % (0.0-1.0); EOS # 0.2 10^3/uL (0.0-0.5); EOS % 3.8 % (0.0-3.0); LYMPH # 1.0 10^3/uL (1.5-5.0); LYMPH % 23.9 % (24.0-44.0); MONO # 0.6 10^3/uL (0.0-0.8); MONO % 15.1 % (2.0-8.0); NEUTROPHILS # 2.2 10^3/uL (1.5-8.5); NEUTROPHILS % 56.1 % (36.0-66.0); PLATELET COUNT, AUTOMATED 134 10^3/uL (150-450)
[2025-03-08 15:03] LABS: PTH INTACT 41.6 PG/ML (18.5-88.0)
[2025-03-08 15:07] LABS: TOTAL 25(OH) VITAMIN D 66.0 NG/ML (20.0-100.0)
[2025-03-08 15:47] LABS: ESTIMATED AVERAGE GLUCOSE 123.0 MG/DL (60-110)
[2025-03-12 09:02] LABS: INSULIN LEVEL 4.1 uIU/mL (<=18.4)
[2025-03-13 17:57] LABS: ENHANCED LIVER FIBROSIS SCORE 10.76 (<9.80)
== END ==
LOC: M LABDRWAD 09:03
PROVIDERS: ATTEND Family Medicine
DX: D50.9 Iron deficiency anemia, unspecified (principal); I50.32 Chronic diastolic (congestive) heart failure; R73.01 Impaired fasting glucose; K76.0 Fatty (change of) liver, not elsewhere classified; E55.9 Vitamin D deficiency, unspecified

== ENCOUNTER → 2025-05-11 | Outpatient (CLI) | payer MEDICARE | LOC: M WHC 12:42 | PROVIDERS: ATTEND Family Medicine | DX: Z12.31 Encounter for screening mammogram for malignant neoplasm of breast (principal); R92.323 Mammographic fibroglandular density, bilateral breasts ==

== ENCOUNTER → 2025-06-26 | Outpatient (REF) | payer MEDICARE ==
[2025-06-26 15:16] LABS: BASO # 0.0 10^3/uL (0.0-0.2); BASO % 0.6 % (0.0-1.0); EOS # 0.2 10^3/uL (0.0-0.5); EOS % 2.9 % (0.0-3.0); LYMPH # 1.2 10^3/uL (1.5-5.0); LYMPH % 23.9 % (24.0-44.0); MONO # 0.6 10^3/uL (0.0-0.8); MONO % 11.0 % (2.0-8.0); NEUTROPHILS # 3.2 10^3/uL (1.5-8.5); NEUTROPHILS % 61.4 % (36.0-66.0); PLATELET COUNT, AUTOMATED 147 10^3/uL (150-450)
[2025-06-26 15:20] LABS: ALT/SGPT 29.0 U/L (7.0-40); AST/SGOT 30.0 U/L (<34); CALCIUM LEVEL 9.4 MG/DL (8.3-10.6); CARBON DIOXIDE LEVEL 34.0 MMOL/L (20-31); CHLORIDE LEVEL 103.0 MMOL/L (98-107); CREATININE FOR GFR 0.93 MG/DL (0.55-1.30); GLOMERULAR FILTRATION RATE 63.7 (>39); MAGNESIUM LEVEL 2.2 MG/DL (1.8-2.4); POTASSIUM SERUM 4.6 MMOL/L (3.5-5.1); PTH INTACT 48.9 PG/ML (18.5-88.0); SODIUM LEVEL 140.0 MMOL/L (136-145)
[2025-06-26 15:25] LABS: TOTAL 25(OH) VITAMIN D 59.6 NG/ML (20.0-100.0)
[2025-06-26 15:39] LABS: ESTIMATED AVERAGE GLUCOSE 123.0 MG/DL (60-110)
[2025-06-29 11:52] LABS: INSULIN LEVEL 3.7 uIU/mL (<=18.4)
== END ==
LOC: M SFHCPLAZ 10:07
PROVIDERS: ATTEND Family Medicine
DX: D50.9 Iron deficiency anemia, unspecified (principal); I50.32 Chronic diastolic (congestive) heart failure; R73.01 Impaired fasting glucose; E55.9 Vitamin D deficiency, unspecified; K76.0 Fatty (change of) liver, not elsewhere classified